=== PATIENT | male | born 1965 | race Two or more races ===

== ENCOUNTER 2023-01-27 13:32 | Emergency (ER) | payer OTHER ==
[~2023-01-27] VITALS: Ht 170.2 cm; Wt 106.8 kg
[2023-01-27] MEDS ORDERED: IBUPROFEN 800 MG TAB PO ONE (15:30)
[2023-01-27 15:47] VITALS: BP 140/79; PULSE 80; RESP 15; O2SAT 96
== END 2023-01-27 15:49 | disposition home or self-care (01) ==
LOC: ER 13:32
DX: S63.92XA Sprain of unspecified part of left wrist and hand, initial encounter (principal); S50.311A Abrasion of right elbow, initial encounter; Z88.0 Allergy status to penicillin; V29.99XA Rider (driver) (passenger) of other motorcycle injured in unspecified traffic accident, initial encounter; Y93.89 Activity, other specified; Y92.410 Unspecified street and highway as the place of occurrence of the external cause; Y99.8 Other external cause status
CPT/HCPCS: 73080; 73130

== ENCOUNTER → 2023-04-19 | Outpatient (CLI) | payer OTHER ==
[2023-04-19 09:35] LABS: Basophils # (auto) 0.1 10 ^3/uL (0-0.2); Basophils % (auto) 1.1 % (0.0-2.0); Eosinophils # (auto) 0.2 10 ^3/uL (0-0.8); Eosinophils % (auto) 4.8 % (0.0-7.0); Hematocrit 46.4 % (41.0-53.0); Hemoglobin 15.5 g/dL (13.5-17.5); Lymphocytes # (auto) 2.1 10 ^3/uL (0.4-5.4); Lymphocytes % (auto) 43.3 % (10.0-50.0); Mean Corpuscular Hemoglobin 32.1 pg (28.0-32.0); Mean Corpuscular Hgb Conc. 33.4 g/dL (32.0-36.0); Mean Corpuscular Volume 96.3 fL (80.0-100.0); Monocytes # (auto) 0.5 10 ^3/uL (0-1.3); Monocytes % (auto) 9.9 % (0.0-12.0); Neutrophils % (auto) 40.9 % (37.0-80.0); Nucleated Red Blood Cells % 0.1 %; Red Blood Cells 4.82 10^6/uL (4.5-5.90); Red Cell Distribution Width 13.9 % (11.8-14.3); White Blood Cell 4.8 10^3/uL (4.4-10.8)
[2023-04-19 10:11] LABS: Alanine Aminotransferase 116 U/L (7-40); Alkaline Phosphatase 50 U/L (46-116); Anion Gap 5 (5-15); BUN/Creatinine Ratio 10.7 (10.0-20.0); Blood Urea Nitrogen 12 mg/dL (9-23); Calcium 9.3 mg/dL (8.5-10.1); Carbon Dioxide 30 mmol/L (20-30); Chloride 108 mmol/L (98-107); Glucose 153 mg/dL (74-106); LDL Cholesterol 118 mg/dL (< 100); Potassium 4.6 mmol/L (3.5-5.1); Sodium 143 mmol/L (136-145); Triglycerides 115 mg/dL (< 150)
[2023-04-19 10:12] LABS: Albumin 4.3 g/dL (3.2-4.8); Aspartate Aminotransferase 75 U/L (13-40); Bilirubin, Total 0.5 mg/dL (0.2-1.0); Cholesterol 185 mg/dL (< 200); HDL Cholesterol 61 mg/dL (40-59)
[2023-04-19 10:13] LABS: Total Protein 7.2 g/dL (5.7-8.2)
[2023-04-19 10:24] LABS: Creatinine, Urine 171.49 mg/dL (30.0-125.0)
[2023-04-19 10:26] LABS: Micro Albumin < 3.0 mg/L (<30.0)
== END | disposition home or self-care (01) ==
LOC: LAB 09:20
PROVIDERS: ATTEND Student in an Organized Health Care Education/Training Program
DX: E11.9 Type 2 diabetes mellitus without complications (principal); H53.8 Other visual disturbances; M54.2 Cervicalgia
CPT/HCPCS: 36415; 80053; 80061; 82043; 82570; 83036; 85025

== ENCOUNTER 2023-11-17 14:54 | Emergency (ER) | payer OTHER ==
[~2023-11-17] VITALS: Ht 170.2 cm; Wt 120.0 kg
[2023-11-17] MEDS: TETANUS-DIPTH-ACEL PERTUSSIS 0.5ML SYR Tdap IM ONE (15:15)
[2023-11-17 15:18] VITALS: TEMP 98.3
[2023-11-17] MEDS: HYDROmorphone HCL 2 MG/ML VL/or syr IM ONE (15:29)
[2023-11-17 15:50] VITALS: PULSE 88; RESP 14; O2SAT 92
[2023-11-17] MEDS: NEOMYCIN-BACITRACIN-POLYM UNITDOSE PKG TOP OINT TOP ONE (16:19)
[2023-11-17] MEDS ORDERED: BACIOIN15 TOP (17:48)
[2023-11-17] MEDS ORDERED: HYDR-4902 PO (17:48)
[2023-11-17] MEDS ORDERED: CEPH250C PO (17:48)
[2023-11-17] MEDS ORDERED: IBUP-1456 PO (17:48)
[2023-11-17 18:11] VITALS: BP 128/78; PULSE 76; RESP 12; O2SAT 94
== END 2023-11-17 18:20 | disposition home or self-care (01) ==
LOC: EDBD 14:54 → ER 14:58
DX: S50.02XA Contusion of left elbow, initial encounter (principal); S50.01XA Contusion of right elbow, initial encounter; S80.02XA Contusion of left knee, initial encounter; S80.01XA Contusion of right knee, initial encounter; S00.81XA Abrasion of other part of head, initial encounter; Z88.0 Allergy status to penicillin; V29.99XA Rider (driver) (passenger) of other motorcycle injured in unspecified traffic accident, initial encounter; Y93.89 Activity, other specified; Y92.89 Other specified places as the place of occurrence of the external cause; Y99.8 Other external cause status
CPT/HCPCS: 73080; 73562; 90471; 90715; 96372; 99285; J1170

== ENCOUNTER 2024-04-20 22:36 | Inpatient (IN) | payer OTHER ==
[~2024-04-20] VITALS: Ht 170.2 cm; Wt 116.4 kg
[~2024-04-20 22:36] MED LIST: BACIOIN15 TOP; CEPH250C PO; HYDR-4902 PO; IBUP-1456 PO
[2024-04-20 22:40] VITALS: PULSE 82; RESP 12; O2SAT 95
[2024-04-20 23:14] LABS: Basophils # (auto) 0.1 10 ^3/uL (0-0.2); Basophils % (auto) 0.7 % (0.0-2.0); Eosinophils # (auto) 0.1 10 ^3/uL (0-0.8); Eosinophils % (auto) 1.1 % (0.0-7.0); Hemoglobin 17.3 g/dL (13.5-17.5); Lymphocytes # (auto) 2.7 10 ^3/uL (0.4-5.4); Lymphocytes % (auto) 30.3 % (10.0-50.0); Mean Corpuscular Hemoglobin 32.9 pg (28.0-32.0); Mean Corpuscular Hgb Conc. 33.8 g/dL (32.0-36.0); Mean Corpuscular Volume 97.2 fL (80.0-100.0); Monocytes # (auto) 0.7 10 ^3/uL (0-1.3); Neutrophils # (auto) 5.3 10 ^3/uL (1.6-8.6); Neutrophils % (auto) 59.9 % (37.0-80.0); Platelet Count (auto) 162 10^3/uL (140-450); Red Blood Cells 5.25 10^6/uL (4.5-5.90); Red Cell Distribution Width 14.1 % (11.8-14.3); White Blood Cell 8.9 10^3/uL (4.4-10.8)
--- NOTE | 2024-04-20 23:19 | ED.PDOC ---
History of Present Illness HPI Comments 59 y/o M, with a Hx of DM, HLD, HTN, and morbid obesity morbid obesity, presents with c/o chest pain and shortness of breath, today. Patient endorses on unprovoked and sudden onset of symptoms, this evening, at around 1845. Patient comments on Hx of having similar symptoms in the past for several months but states on never being medical evaluated for it in the past. Patient reports no additional pertinent or relevant Hx in addition to recent stress, injuries, sick contact, travel, spoiled food, or substance use/exposure. Patient denies having any palpitations, cough, nausea, vomiting, fever, chills, or other associated symptoms or modifiers at this time. Chief Complaint: Shortness of Breath Time Seen by MD: 22:45 Reviewed Notes: Nurses Notes, Medications, Allergies Allergies: Coded Allergies: Penicillins (Verified Allergy, Unknown, 01/27/23) Home Meds Active Scripts Hydrocodone-Acetaminophen (Hydrocodone Bitartrate/AC 5-325 mg) 1 Tab Tab, 1 TAB PO Q6HP PRN, #20 TAB Prov:ADIEL MARQUEZ PAC 11/17/23 Ibuprofen (Ibuprofen) 800 Mg Tab, 1 TAB PO Q8HP PRN, #30 TAB 0 Refills Prov:ADIEL MARQUEZ PAC 11/17/23 Bacitracin Base (Bacitracin) 500 Unit/Gm Oin, 500 UNIT TOP DAILY, #60 GM Prov:ADIEL MARQUEZ PAC 11/17/23 Cephalexin (KEFLEX CAPSULE) 250 Mg Cp, 1 CAP PO QID for 7 Days, #28 CAP Prov:ADIEL MARQUEZ PAC 11/17/23 Information Source: Patient Mode of Arrival: Ambulatory Severity: Moderate Timing: Hours Duration: Since onset Prehospital treatment: None Past Medical History PAST MEDICAL HISTORY: DM, High Lipids, HTN Past Medical History (Other): morbid obesity Surgical History: Denies all surgeries Family History Family History: Unknown Social History Smoker: Non-Smoker Alcohol: Occasionally Drugs: Denies Drug Use Lives In: Home Constitutional: denies: chills, diaphoresis, fatigue, fever, malaise, sweats, weakness, others EENTM: denies: blurred vision, double vision, ear bleeding, ear discharge, ear drainage, ear pain, ear ringing, eye pain, eye redness, hearing loss, mouth pain, mouth swelling, nasal discharge, nose bleeding, nose congestion, nose pain, photophobia, tearing, throat pain, throat swelling, voice changes, others Respiratory: reports: shortness of breath; denies: cough, hemoptysis, orthopnea, SOB at rest, SOB with excertion, stridor, wheezing, others Cardiovascular: reports: chest pain; denies: dizzy spells, diaphoresis, Dyspnea on exertion, edema, irregular heart beat, left arm pain, lightheadedness, palpitations, PND, syncope, others Gastrointestinal: denies: abdomen distended, abdominal pain, blood streaked bowels, constipated, diarrhea, dysphagia, difficulty swallowing, hematemesis, melena, nausea, poor appetite, poor fluid intake, rectal bleeding, rectal pain, vomiting, others Genitourinary: denies: burning, dysuria, flank pain, frequency, hematuria, incontinence, penile discharge, penile sore, pain, testicle pain, testicle swelling, urgency, others Neurological: denies: dizziness, fainting, headache, left sided numbness, left sided weakness, numbness, paresthesia, pre-existing deficit, right sided numbness, right sided weakness, seizure, speech problems, tingling, tremors, weakness, others Musculoskeletal: denies: back pain, gout, joint pain, joint swelling, muscle pain, muscle stiffness, neck pain, others Integumetry: denies: bruises, change in color, change in hair/nails, dryness, laceration, lesions, lumps, rash, wounds, others Allergic/Immunocompromised: denies: Difficulty Healing, Frequent Infections, Hives, Itching, others Hematologic/Lymphatic: denies: anemia, blood clots, easy bleeding, easy bruising, swollen glands, others Endocrine: denies: excessive hunger, excessive sweating, excessive thirst, excessive urination, flushing, intolerance to cold, intolerance to heat, unexplained weight gain, unexplained weight loss, others Psychiatric: denies: anxiety, bipolar disorder, depression, hopeless, panic disorder, schizophrenia, sleepless, suicidal, others All Other Systems: Reviewed and Negative Physical Exam General Appearance: Moderate Distress HEENT: Normal ENT Inspection, Pharynx Normal, TMs Normal Neck: Full Range of Motion, Non-Tender, Normal, Normal Inspection Respiratory: Chest Non-Tender, Lungs Clear, No Accessory Muscle Use, No Respiratory Distress, Normal Breath Sounds Cardiovascular: No Edema, No JVD, No Murmur, No Gallop, Normal Peripheral Pulses, Regular Rate/Rhythm Breast Exam: Deferred Gastrointestinal: No Organomegaly, Non Tender, No Pulsatile Mass, Normal Bowel Sounds, Soft Genitalia: Deferred Pelvic: Deferred Rectal: Deferred Extremities: No calf tenderness, Normal capillary refill, Normal inspection, Normal range of motion, Non-tender, No pedal edema Musculoskeletal : Apperance: Normal Neurologic: Alert Cerebellar Function: NOT DONE Reflexes: NOT DONE Skin: Normal Color Peripheral Pulses: 3+ Radial (R), 3+ Radial (L) Lymphatic: No Adenopathy Was a procedure done? Was a procedure done?: No EKG EKG : Pulse Rate (adult): 91 Burt: Normal Cardiac Rhythm: NSR Block: None Hypertrophy: None ST: Normal Differential Dx Considerations may include: DE, ACS, pneumonia, angina, musculoskeletal pain, costochondritis, pericarditis, gastritis, gastroenteritis, viral syndrome X-Ray, Labs, Meds, VS Vital Signs Date Time Temp Pulse Resp B/P (MAP) Pulse Ox O2 Delivery O2 Flow Rate FiO2 04/20/24 23:19 91 04/20/24 23:07 99.0 99 21 178/112 (134) 97 04/20/24 22:45 91 Lab Test 04/20/24 22:57 Range/Units White Blood Count 8.9 4.4-10.8 10^3/uL Red Blood Count 5.25 4.5-5.90 10^6/uL Hemoglobin 17.3 13.5-17.5 g/dL Hematocrit 51.0 41.0-53.0 % Mean Corpuscular Volume 97.2 80.0-100.0 fL Mean Corpuscular Hemoglobin 32.9 H 28.0-32.0 pg Mean Corpuscular Hemoglobin Concent 33.8 32.0-36.0 g/dL Red Cell Distribution Width 14.1 11.8-14.3 % Platelet Count 162 140-450 10^3/uL Mean Platelet Volume 9.6 6.9-10.8 fL Neutrophils (%) (Auto) 59.9 37.0-80.0 % Lymphocytes (%) (Auto) 30.3 10.0-50.0 % Monocytes (%) (Auto) 8.0 0.0-12.0 % Eosinophils (%) (Auto) 1.1 0.0-7.0 % Basophils (%) (Auto) 0.7 0.0-2.0 % Neutrophils # (Auto) 5.3 1.6-8.6 10 ^3/uL Lymphocytes # (Auto) 2.7 0.4-5.4 10 ^3/uL Monocytes # (Auto) 0.7 0-1.3 10 ^3/uL Eosinophils # (Auto) 0.1 0-0.8 10 ^3/uL Basophils # (Auto) 0.1 0-0.2 10 ^3/uL Nucleated Red Blood Cells 0.0 % Sodium Level 137 136-145 mmol/L Potassium Level 4.3 3.5-5.1 mmol/L Chloride Level 103 98-107 mmol/L Carbon Dioxide Level 25 20-31 mmol/L Anion Gap 9 5-15 Blood Urea Nitrogen 16 9-23 mg/dL Creatinine 1.30 0.700-1.30 mg/dL Glomerular Filtration Rate Calc 64 >90 mL/min BUN/Creatinine Ratio 12.3 10.0-20.0 Serum Glucose 409 *H 74-106 mg/dL Calcium Level 9.8 8.7-10.4 mg/dL Troponin I High Sensitivity 723 *H </=54 ng/L [place] [address] Ph: [phone] DIAGNOSTIC IMAGING Diagnostic Imaging Report : [id number] Signed PATIENT: GENOVEVA TORRES ACCT: [id number] UNIT: [id number] : 1965 LOC: ER ROOM / BED: / AGE / SEX: 59 / M ADM STATUS: REG ER SERVICE [id number] ORDERING PHYSICIAN: CHUY THRASHER MD PROCEDURE(s): CXRP - CHEST PORTABLE REASON: sob ORDER NUMBER(s): [id number], ACCESSION NUMBER(s): [id number] EXAM: XY CHEST PORTABLE CLINICAL HISTORY: sob TECHNIQUE: Single AP view of the chest WID: COMPARISON: None FINDINGS: Lines and tubes: None Chest: The heart size and pulmonary vasculature is within normal limits. No pleural effusion, pneumothorax, or consolidation. Linear perihilar and bibasilar opacities likely atelectasis The osseous structures are grossly intact. IMPRESSION: Linear perihilar and bibasilar opacities likely atelectasis. ATED BY: DANITA CHRISTOPHER MD DICTATED DATE/TIME: 04/20/242325 SIGNED BY: DANITA CHRISTOPHER MD SIGNED DATE/TIME: 04/20/242325 CC: Patient alert. Complaining of chest pain. Has risk factors for coronary artery disease. Vitals stable. Continues to have chest pain. Establish intravenous access. Was given morphine. Was given Zofran. Was given aspirin. EKG reviewed does not show any acute changes. Chest x-ray reviewed does not show any acute process. Reviewed his previous visit. Explained to the patient. Continue cardiac monitoring. Time of 1ST Reevaluation: 23:15 Reevaluation 1ST: Unchanged Patient Education/Counseling: Diagnosis, Treatment Family Education/Counseling: No Family Present Departure 1 Departure Time of Disposition: 23:38 Impression: Primary Impression: Chest pain of unknown etiology Additional Impression: Hypertensive urgency Disposition: ADMITTED INPATIENT Admit to: Med Surg Condition: Guarded Critical Care Note Critical Care Time?: Yes (90 min-critical care time only) Stability Stability form required: No Heart Score Heart Score: Heart Score Response (Comments) Value History Moderate Suspicious 1 EKG Normal 0 Age 45-64 1 Risk Factors >3 or Hx ASHD 2 Troponin Normal limit 0 Total 4 I personally scribed for CHUY THRASHER MD ([email or web address]) on 04/20/24 at 23:19. Electronically submitted by Jovany Grier ([email or web address]). I personally scribed for CHUY THRASHER MD ([email or web address]) on 04/21/24 at 00:06. Electronically submitted by Jovany Grier ([email or web address]). CHUY THRASHER MD Apr 20, 2024 23:19
[2024-04-20 23:27] LABS: Chloride 103 mmol/L (98-107); Potassium 4.3 mmol/L (3.5-5.1); Sodium 137 mmol/L (136-145)
[2024-04-20 23:28] LABS: Anion Gap 9 (5-15); Calcium 9.8 mg/dL (8.7-10.4); Carbon Dioxide 25 mmol/L (20-31)
--- NOTE | 2024-04-20 23:29 | DVH ---
EXAM: XY CHEST PORTABLE CLINICAL HISTORY: sob TECHNIQUE: Single AP view of the chest WID: COMPARISON: None FINDINGS: Lines and tubes: None Chest: The heart size and pulmonary vasculature is within normal limits. No pleural effusion, pneumothorax, or consolidation. Linear perihilar and bibasilar opacities likely atelectasis The osseous structures are grossly intact. IMPRESSION: Linear perihilar and bibasilar opacities likely atelectasis.
[2024-04-20 23:33] LABS: BUN/Creatinine Ratio 12.3 (10.0-20.0); Blood Urea Nitrogen 16 mg/dL (9-23)
[2024-04-20 23:39] LABS: Glucose 409 mg/dL (74-106)
[2024-04-20] MEDS: ONDANSETRON HCL 4 MG/2 ML VIAL IV ONE (23:45)
[2024-04-21] MEDS: InsuLIN REG 1unit/0.01ml Soln (100units/ml) IV ONE
[2024-04-21] MEDS: ASPirin 325 MG TAB PO ONE (00:20)
[2024-04-21] MEDS: MORPHINE SULFATE 4 MG/ML SYR/VIAL IV ONE (00:21)
[2024-04-21] MEDS: SODIUM CHLORIDE 0.9% 1,000 ML IV ONE (00:28)
[2024-04-21] MEDS: ENOXAPARIN SOD 120 MG/0.8 ML SYRINGE SC ONE ×2 (00:38→22:20)
[2024-04-21] MEDS: cloNIDine HCL 0.1 MG TAB PO ONE (00:38)
--- NOTE | 2024-04-21 06:37 | ECG ---
[facility] Test Date: 2024-04-20 Test Time: 22:45:54 Pat Name: GENOVEVA TORRES Department: ED Room: 0291T Gender: M Ceiling Insulation Blower: LIZZY : 1965 Requested By: CHUY THRASHER Order Number: [id number] Reading MD: Hermilo Delgadillo Measurements Intervals Felda Rate: 91 P: 50 NE: 150 QRS: 12 QRSD: 93 T: 26 QT: 367 QTc: 452 Interpretive Statements Sinus rhythm Electronically Signed On 04-25-2024 17:03:30 PST by Hermilo Delgadillo Please click the below link to view image of tracing.
[2024-04-21 07:30] VITALS: PULSE 78; RESP 18; O2SAT 96
[2024-04-21 07:40] LABS: Urine Bacteria None Seen /hpf (None Seen); Urine WBC None Seen /hpf (0 - 3)
[2024-04-21 07:53] LABS: Urine Blood Negative /uL (Negative); Urine Budding Yeast OCCASIONAL /hpf (None Seen); Urine Clarity Clear (Clear); Urine Color Yellow (Yellow); Urine Mucus FEW (None Seen); Urine Protein, UAD Negative (Negative); Urine Specific Gravity 1.036 (1.001-1.035); Urine Urobilinogen Normal (Negative)
[2024-04-21] MEDS ORDERED: LORazepam 0.5 MG TAB PO PRN (12:15)
[2024-04-21] MEDS ORDERED: MORPHINE SULFATE INJ 2 MG/ml SYRG IV PRN (12:15)
[2024-04-21] MEDS ORDERED: DEXTROSE (50%) 50ML SYRG IV PRN (12:15)
[2024-04-21] MEDS ORDERED: NITROGLYCERIN 0.4 MG SL TAB SL PRN (12:15)
[2024-04-21] MEDS ORDERED: ONDANSETRON HCL 4 MG/2 ML VIAL IV PRN (12:15)
[2024-04-21] MEDS ORDERED: MORPHINE SULFATE 4 MG/ML SYR/VIAL IV PRN (12:15)
--- NOTE | 2024-04-21 12:52 | DVHHP2 ---
History of Present Illness Reason for Visit: chest pain History of Present Illness 59-year-old morbidly obese with a history of hypertension diabetes CAD CHF comes to the ED with complaints of chest pain patient was shown to be hyperglycemic have elevated troponins have hypertensive urgency and was recommended for continued evaluation and management and treatment for suspected NSTEMI patient will be admitted for continued treatment recurrent chest pain issues Cardiovascular: CAD, CHF, HTN Endocrine: Diabetes Review of Systems Constitutional: Yes: Weakness; No: Fever, Chills, Sweats, Malaise, Other Eyes: No: Pain, Vision change, Conjunctivae inflammation, Eyelid inflammation, Other, Redness ENT: No: Ear pain, Ear discharge, Nose pain, Nose discharge, Nose congestion, Mouth pain, Mouth swelling, Throat pain, Throat swelling, Other Respiratory: Shortness of breath, SOB with excertion; No: Cough, Dry, Wheezing, Hemoptysis, Pleuritic Pain, Sputum, Wheezing, Other Cardiovascular: Chest Pain, Palpitations; No: Orthopnea, Paroxysmal Noc. Dyspnea, Edema, Lt Headedness, Other Gastrointestinal: No: Nausea, Vomiting, Abdominal Pain, Diarrhea, Constipation, Melena, Hematochezia, Other Genitourinary: No Dysuria, No Frequency, No Incontinence, No Hematuria, No Retention, No Other Musculoskeletal: No: other, neck pain, shoulder pain, arm pain, back pain, hand pain, leg pain, foot pain Skin: No: Rash, Lesions, Jaundice, Bruising, Other Neurological: No: Weakness, Numbness, Incoordination, Change in speech, Confusion, Seizures, Other Allergies: Coded Allergies: Penicillins (Verified Allergy, Unknown, 01/27/23) Medications Current Medications Medications Dose Ordered Sig/Anny Route Start Time Stop Time Status Last Admin Dose Admin Diagnostic Test (Pha) 1 strip IQ4HR 04/21/24 16:00 UNV Insulin Human Regular IQ4HR SC 04/21/24 16:00 UNV Dextrose 50 ml UD PRN IV 04/21/24 12:15 UNV Aspirin 81 mg DAILY PO 04/22/24 10:00 UNV Clopidogrel Bisulfate 75 mg DAILY PO 04/22/24 10:00 UNV Atorvastatin Calcium 80 mg HS PO 04/21/24 22:00 UNV Metoprolol Tartrate 12.5 mg Q12HR PO 04/21/24 22:00 UNV Morphine Sulfate 2 mg Q30MP PRN IV 04/21/24 12:15 UNV Acetaminophen 650 mg Q6HP PRN PO 04/21/24 12:15 UNV Zolpidem Tartrate 5 mg QHSP PRN PO 04/21/24 12:15 UNV Lorazepam 0.5 mg Q6HP PRN PO 04/21/24 12:15 UNV Docusate Sodium 100 mg DAILY PO 04/22/24 10:00 UNV Ondansetron HCl 4 mg Q4HP PRN IV 04/21/24 12:15 UNV Lisinopril 10 mg DAILY PO 04/22/24 10:00 UNV Nitroglycerin 0.4 mg Q5MINP PRN SL 04/21/24 12:15 UNV Morphine Sulfate 2 mg Q30M PRN IV 04/21/24 12:15 UNV Exam Vital Signs Vital Signs Date Time Temp Pulse Resp B/P (MAP) Pulse Ox O2 Delivery O2 Flow Rate FiO2 04/21/24 10:38 112 04/21/24 10:00 16 132/95 (107) 96 04/21/24 07:30 Nasal Cannula* 2 28 04/20/24 23:07 99.0 General Appearance: Alert, moderate distress HEENT: Atraumatic, PERRLA Respiratory: Clear to auscultation Cardiovascular: Regular rate, Normal S1, Normal S2 Abdominal: Normal bowel sounds, Soft Extremities: No clubbing, No cyanosis Skin: No rashes, No breakdown Neuro: Normal gait, Normal speech Psych/Mental Status: Mood NL Labs/Xrays Labs Test 04/21/24 06:30 04/21/24 03:50 04/21/24 00:48 04/20/24 22:57 Range/Units Urine Color Yellow Yellow Urine Clarity Clear Clear Urine pH 5.0 5.0-9.0 Urine Specific [place] 1.036 H 1.001-1.035 Urine Protein Negative Negative Urine Ketones Negative Negative Urine Blood Negative Negative /uL Urine Nitrite Negative Negative Urine Bilirubin Negative Negative Urine Urobilinogen Normal Negative mg/dL Urine Leukocyte Esterase Negative Negative /uL Urine RBC None seen 0 - 3 /hpf Urine WBC None seen 0 - 3 /hpf Urine Squamous Epithelial Cells Few <5 /hpf Urine Bacteria None seen None Seen /hpf Urine Mucus Few None Seen Urine Yeast (Budding) Occasional None Seen /hpf Urine Glucose 4+ H Normal mg/dL Troponin I High Sensitivity 606 *H </=54 ng/L POC Glucose 287 H 70-106 mg/dl White Blood Count 8.9 4.4-10.8 10^3/uL Red Blood Count 5.25 4.5-5.90 10^6/uL Hemoglobin 17.3 13.5-17.5 g/dL Hematocrit 51.0 41.0-53.0 % Mean Corpuscular Volume 97.2 80.0-100.0 fL Mean Corpuscular Hemoglobin 32.9 H 28.0-32.0 pg Mean Corpuscular Hemoglobin Concent 33.8 32.0-36.0 g/dL Red Cell Distribution Width 14.1 11.8-14.3 % Platelet Count 162 140-450 10^3/uL Mean Platelet Volume 9.6 6.9-10.8 fL Neutrophils (%) (Auto) 59.9 37.0-80.0 % Lymphocytes (%) (Auto) 30.3 10.0-50.0 % Monocytes (%) (Auto) 8.0 0.0-12.0 % Eosinophils (%) (Auto) 1.1 0.0-7.0 % Basophils (%) (Auto) 0.7 0.0-2.0 % Neutrophils # (Auto) 5.3 1.6-8.6 10 ^3/uL Lymphocytes # (Auto) 2.7 0.4-5.4 10 ^3/uL Monocytes # (Auto) 0.7 0-1.3 10 ^3/uL Eosinophils # (Auto) 0.1 0-0.8 10 ^3/uL Basophils # (Auto) 0.1 0-0.2 10 ^3/uL Nucleated Red Blood Cells 0.0 % Sodium Level 137 136-145 mmol/L Potassium Level 4.3 3.5-5.1 mmol/L Chloride Level 103 98-107 mmol/L Carbon Dioxide Level 25 20-31 mmol/L Anion Gap 9 5-15 Blood Urea Nitrogen 16 9-23 mg/dL Creatinine 1.30 0.700-1.30 mg/dL Glomerular Filtration Rate Calc 64 >90 mL/min BUN/Creatinine Ratio 12.3 10.0-20.0 Serum Glucose 409 *H 74-106 mg/dL Calcium Level 9.8 8.7-10.4 mg/dL Assessment/Plan Assessment/Plan Admit to Tele Nstemi chest pain palpations Elevated Tropsx3 history HTN, CAD, DM cardio consult for acute management possible need for cath morbidly obese DM uncontrolled hyperglycemia aggressive insulin sliding scale iv hydration gentle HTN urgency clonidine given in the ed hydralazine prn tid bp management Plan discussed with: Patient My Orders Orders - AHMET DE ANDA MD Procedure Category Date Status Time * Cardiology Consult CONS 04/21/24 Transmitted 12:14 Glucose Blood PHA 04/21/24 Logged (Accu-Chek Comfort 16:00 Insulin R (Human) PHA 04/21/24 Logged (Insulin R) 16:00 Dextrose 50% Syringe PHA 04/21/24 Logged 12:15 Admit ADMIT 04/21/24 Transmitted 12:14 Code Status CODE 04/21/24 Transmitted 12:14 Leather Skinner MESSI 04/21/24 In Process 12:14 Cardiac DIET 04/21/24 Transmitted Diet-2gna,Lofat,Lochol Lunch Aspirin Tablet PHA 04/22/24 Logged 10:00 Clopidogrel Bisulfate PHA 04/22/24 Logged (Plavix) 10:00 Atorvastatin (Lipitor) PHA 04/21/24 Logged 22:00 Metoprolol Tartrate PHA 04/21/24 Logged Tablet (Lopressor Ta 22:00 Morphine Sulfate PHA 04/21/24 Logged Injection 12:15 Acetaminophen Tablet PHA 04/21/24 Logged (Tylenol Tablet) 12:15 Zolpidem Tartrate PHA 04/21/24 Logged (Ambien) 12:15 Lorazepam Tablet PHA 04/21/24 Logged (Ativan Tablet) 12:15 Docusate Sodium PHA 04/22/24 Logged Capsule (Colace 10:00 Complete Blood Count LAB 04/22/24 Verified 04:00 Basic Metabolic Panel LAB 04/22/24 Verified 04:00 Ondansetron Hcl PHA 04/21/24 Logged (Zofran) 12:15 Electrocardigram EKG 04/21/24 Logged 12:14 Alum & Mag PHA 04/21/24 Logged Hydrox-Simethicone 12:15 Troponin-I Hs LAB 04/21/24 Logged 12:14 Lisinopril Tablet PHA 04/22/24 Logged (Zestril Tablet) 10:00 Cardiac MESSI 04/21/24 In Process Rehabilitation - Outpa Nitroglycerin [facility] 04/21/24 Logged Sublingual (Ntrostat 12:15 Morphine Sulfate [facility] 04/21/24 Logged Injection 12:15 Stat Ekg For Chest [facility] 04/21/24 In Process Pain 12:14 Notify Md Of Changes [facility] 04/21/24 In Process From Base 12:14 Livestock Agent For [facility] 04/21/24 In Process 24 Hours 12:14 Emergency Dysrhythmia [facility] 04/21/24 In Process Protocol 12:14 Rhythm Strips Once [facility] 04/21/24 In Process Every Shift 12:14 Oxygen By Nasal 04/21/24 Transmitted Cannula 12:14 Problem List: (1) NSTEMI (non-ST elevated myocardial infarction) (2) Hypertensive urgency (3) Chest pain of unknown etiology Date of Service: Apr 21, 2024 Billing Provider: AHMET ED ANDA MD Common Visit Codes: [id number] INP/OBS CARE (HIGH) AHMET DE ANDA MD Apr 21, 2024 12:52
[2024-04-21] MEDS: MAALOX PLUS or MAALOX 30 ML PO ONE (13:47)
[2024-04-21 14:16] VITALS: BP 106/67; PULSE 84; RESP 16; TEMP 97.7; O2SAT 95
--- NOTE | 2024-04-21 14:28 | DVHINCON2 ---
Date Seen: Apr 21, 2024 Referring Physician MD Thad Reason for Consultation Chest pain History of Present Illness This is a 59-year-old male who presented to the emergency room with a chief complaint of chest pain for two days. Localizes his chest pain to the substernal area, pressure-like, constant, and associated with WHITE with short distances, PND, and polyuria. He underwent a 12 lead electrocardiogram revea ling a sinus rhythm without acute discernible ischemia. Serial troponin levels peaked at 750 ng/L. Significant medical history includes oyq-bqenszo-gklbzweop diabetes mellitus managed by diet and exercise, chronic left knee pain with cane use, and morbid obesity. Of note, previous provider reported history of CAD and CHF which the patient denies. Past Medical History Past medical history reviewed. No other significant than mentioned above. Past Surgical History Left knee replacement Right shoulder Family History Family history reviewed. Social History Denies the use of illicit drugs or tobacco use. Admits to social alcohol use. Allergies: Coded Allergies: Penicillins (Verified Allergy, Unknown, 01/27/23) Home Meds Active Scripts Hydrocodone-Acetaminophen (Hydrocodone Bitartrate/AC 5-325 mg) 1 Tab Tab, 1 TAB PO Q6HP PRN, #20 TAB Prov:ADIEL MARQUEZ PAC 11/17/23 Ibuprofen (Ibuprofen) 800 Mg Tab, 1 TAB PO Q8HP PRN, #30 TAB 0 Refills Prov:ADIEL MARQUEZ PAC 11/17/23 Bacitracin Base (Bacitracin) 500 Unit/Gm Oin, 500 UNIT TOP DAILY, #60 GM Prov:ADIEL MARQUEZ PAC 11/17/23 Cephalexin (KEFLEX CAPSULE) 250 Mg Cp, 1 CAP PO QID for 7 Days, #28 CAP Prov:ADIEL MARQUEZ [facility] 11/17/23 Home Meds Home medications reviewed. Current Medications Current Medications Medications (Trade) Dose Ordered Sig/Anny Route PRN Reason Start Time Stop Time Status Last Admin Diagnostic Test (Pha) (Accu-Chek Comfort Curve T) 1 strip IQ4HR 04/21/24 16:00 Insulin Human Regular (InsuLIN R) IQ4HR SC 04/21/24 16:00 Dextrose 50 ml UD PRN IV Blood Sugar LESS THAN 60 04/21/24 12:15 Aspirin 81 mg DAILY PO 04/22/24 10:00 Clopidogrel Bisulfate (Plavix) 75 mg DAILY PO 04/22/24 10:00 Atorvastatin Calcium (Lipitor) 80 mg HS PO 04/21/24 22:00 Metoprolol Tartrate (Lopressor Tablet) 12.5 mg Q12HR PO 04/21/24 22:00 Morphine Sulfate 2 mg Q30MP PRN IV FOR CHEST PAIN 04/21/24 12:15 04/21/24 13:41 DC Acetaminophen (Tylenol Tablet) 650 mg Q6HP PRN PO MILD PAIN (1-3 PAIN SCALE) 04/21/24 12:15 Zolpidem Tartrate (Ambien) 5 mg QHSP PRN PO FOR INSOMNIA 04/21/24 22:00 Lorazepam (Ativan Tablet) 0.5 mg Q6HP PRN PO ANXIETY 04/21/24 12:15 Docusate Sodium (Colace Capsule) 100 mg DAILY PO 04/22/24 10:00 Ondansetron HCl (Zofran) 4 mg Q4HP PRN IV NAUSEA / VOMITING 04/21/24 12:15 Lisinopril (Zestril Tablet) 10 mg DAILY PO 04/22/24 10:00 Nitroglycerin (Ntrostat Sublingual) 0.4 mg Q5MINP PRN SL FOR CHEST PAIN 04/21/24 12:15 Morphine Sulfate 2 mg Q30M PRN IV FOR CHEST PAIN 04/21/24 12:15 Review of Systems Constitutional: No symptom reported Ears, Nose, & Throat: No symptom reported Eyes: No symptom reported Neurological: No symptoms reported Pulmonary/Respiratory: SOB, WHITE, PND Cardiovascular: Chest pain Gastrointestinal: No symptom reported Genitourinary: Polyuria Musculoskeletal: No symptom reported Skin: No symptom reported Psychiatric: No symptom reported Endocrine: No symptom reported Hemotologic/Lymphatic: No symptom reported Vital Signs Vital Signs Date Time Temp Pulse Resp B/P (MAP) Pulse Ox O2 Delivery O2 Flow Rate FiO2 04/21/24 12:00 70 16 130/85 (100) 98 04/21/24 07:30 Nasal Cannula* 2 28 04/20/24 23:07 99.0 Physical Exam General Appearance: Cooperative. Well developed. Morbidly obese. In no acute distress Head Exam: Normal inspection Neck Exam: Normal inspection. Non-tender. Normal alignment Pulmonary/Respiratory: Chest non-tender. Diminished bilateral breath sounds Cardiovascular/Chest: Regular rate and rhythm. S1, S2. Sinus rhythm. No murmurs. No JVD. Peripheral Pulses: 2+ Radial (R). 2+ Radial (L). 2+ Pedal (R). 2+ Pedal (L) Abdominal Exam: Normal bowel sounds. Soft. Nontender. No hepatospenomegaly. No masses Ankle Exam: Negative ankle edema Lower extremities: Negative lower extremity edema Neuro/Mental Status: A&O x4. Coherent Thoughts/Psych: Normal thought pattern. Appropriate mood and affect. Good judgement and insight Appearance: In no acute distress Skin Exam: Normal inspection. Normal color. Warm. Dry Labs/Diagnostic Data Labs Test 04/21/24 06:30 04/21/24 03:50 04/21/24 00:48 04/20/24 22:57 Range/Units Urine Color Yellow Yellow Urine Clarity Clear Clear Urine pH 5.0 5.0-9.0 Urine Specific [place] 1.036 H 1.001-1.035 Urine Protein Negative Negative Urine Ketones Negative Negative Urine Blood Negative Negative /uL Urine Nitrite Negative Negative Urine Bilirubin Negative Negative Urine Urobilinogen Normal Negative mg/dL Urine Leukocyte Esterase Negative Negative /uL Urine RBC None seen 0 - 3 /hpf Urine WBC None seen 0 - 3 /hpf Urine Squamous Epithelial Cells Few <5 /hpf Urine Bacteria None seen None Seen /hpf Urine Mucus Few None Seen Urine Yeast (Budding) Occasional None Seen /hpf Urine Glucose 4+ H Normal mg/dL Troponin I High Sensitivity 606 *H </=54 ng/L POC Glucose 287 H 70-106 mg/dl White Blood Count 8.9 4.4-10.8 10^3/uL Red Blood Count 5.25 4.5-5.90 10^6/uL Hemoglobin 17.3 13.5-17.5 g/dL Hematocrit 51.0 41.0-53.0 % Mean Corpuscular Volume 97.2 80.0-100.0 fL Mean Corpuscular Hemoglobin 32.9 H 28.0-32.0 pg Mean Corpuscular Hemoglobin Concent 33.8 32.0-36.0 g/dL Red Cell Distribution Width 14.1 11.8-14.3 % Platelet Count 162 140-450 10^3/uL Mean Platelet Volume 9.6 6.9-10.8 fL Neutrophils (%) (Auto) 59.9 37.0-80.0 % Lymphocytes (%) (Auto) 30.3 10.0-50.0 % Monocytes (%) (Auto) 8.0 0.0-12.0 % Eosinophils (%) (Auto) 1.1 0.0-7.0 % Basophils (%) (Auto) 0.7 0.0-2.0 % Neutrophils # (Auto) 5.3 1.6-8.6 10 ^3/uL Lymphocytes # (Auto) 2.7 0.4-5.4 10 ^3/uL Monocytes # (Auto) 0.7 0-1.3 10 ^3/uL Eosinophils # (Auto) 0.1 0-0.8 10 ^3/uL Basophils # (Auto) 0.1 0-0.2 10 ^3/uL Nucleated Red Blood Cells 0.0 % Sodium Level 137 136-145 mmol/L Potassium Level 4.3 3.5-5.1 mmol/L Chloride Level 103 98-107 mmol/L Carbon Dioxide Level 25 20-31 mmol/L Anion Gap 9 5-15 Blood Urea Nitrogen 16 9-23 mg/dL Creatinine 1.30 0.700-1.30 mg/dL Glomerular Filtration Rate Calc 64 >90 mL/min BUN/Creatinine Ratio 12.3 10.0-20.0 Serum Glucose 409 *H 74-106 mg/dL Calcium Level 9.8 8.7-10.4 mg/dL Assessment NSTEMI rule out coronary artery disease Rule out structural heart disease Ljq-lztxvgk-pwzapsldf diabetes mellitus with hyperglycemia Hypertension urgency, newly diagnosed Morbid obesity Plan/Recommendation (Dr. Patel) The patient with elevated troponin levels, risk factors, and associated angina has been scheduled for a cardiac catheterization and coronary angiogram at first available. All risks and benefits of the procedure were discussed with the patient who agrees to proceed with intervention. All questions answered. In the meantime, obtain a transthoracic echocardiogram to rule out structural heart disease. Initiate aggressive blood pressure management as well as tight glycemic control. Continue therapeutic Lovenox, single-antiplatelet therapy, and lipid lowering agent prior to procedure. Monitor ECG changes and notify. Continue chest pain protocol. Thank you for allowing us to participate in this patient's care. Please call if you have any questions or concerns. This medical document was created using an electronic medical record system with voice recognition software and computerized dictation system. Although this document has been carefully reviewed, there might still be some phonetic and typographical errors. Occasional wrong-word or ``sound-alike substitutions may have occurred due to the inherent limitations of voice recognition software. These areas are purely typographical due to imperfections of the software programs and do not reflect any compromise in the patient's medical care. Please read the chart carefully and recognize, using context, where these substitutions have occurred. Plan discussed with: Patient, Other Date of Service: Apr 21, 2024 Billing Provider: MOON PATEL MD Cardiology Common Codes: [id number] INP/OBS CARE (High) JULIETH YARBROUGH OIL RECOVERY OPERATOR Apr 21, 2024 14:28
[2024-04-21] MEDS ORDERED: hydrALAZINE HCL 20 MG/ML VL IV PRN (14:30)
[2024-04-21 15:31] LABS: Basophils # (auto) 0.1 10 ^3/uL (0-0.2); Eosinophils # (auto) 0.1 10 ^3/uL (0-0.8); Eosinophils % (auto) 1.4 % (0.0-7.0); Hematocrit 49.9 % (41.0-53.0); Hemoglobin 16.8 g/dL (13.5-17.5); Lymphocytes # (auto) 2.4 10 ^3/uL (0.4-5.4); Lymphocytes % (auto) 37.3 % (10.0-50.0); Mean Corpuscular Hgb Conc. 33.6 g/dL (32.0-36.0); Mean Corpuscular Volume 98.3 fL (80.0-100.0); Monocytes # (auto) 0.5 10 ^3/uL (0-1.3); Monocytes % (auto) 8.1 % (0.0-12.0); Neutrophils # (auto) 3.4 10 ^3/uL (1.6-8.6); Neutrophils % (auto) 52.2 % (37.0-80.0); Nucleated Red Blood Cells % 0.3 %; Platelet Count (auto) 152 10^3/uL (140-450); Red Blood Cells 5.08 10^6/uL (4.5-5.90); Red Cell Distribution Width 14.4 % (11.8-14.3); White Blood Cell 6.6 10^3/uL (4.4-10.8)
--- NOTE | 2024-04-21 15:45 | DVHSR ---
APPROVED REPORT EXAM: Two-dimensional and M-mode echocardiogram with Doppler and color Doppler. Blood Pressure: 130/85 mmHg INDICATION SOB R/O CHF RISK FACTORS Height: 67, Weight: 239 DIMENSIONS LVDd4.2 (3.8-5.7cm)LA (2D)3.9 (1.9-4.0cm)Aortic Root3.4 (2.0-3.7cm) LVDs2.9 (2.5-4.0cm)LA (MM) (1.9-4.0cm)Aortic Cusp Exc1.9 (1.5-2.0cm) EF (%) 60.0 (55-70%)Rt. Atrium (1.9-4.0cm)Asc. Aorta3.0 cm IVSd1.2 (0.7-1.1cm)RV (D) (1.8-2.4cm) PWd1.2 (0.7-1.1cm) Mitral Valve MitralMitral Stenosis E wave0.45m/sMV Mean GR.mmHg A wave0.73m/sMV Peak GR.mmHg E/A ratio0.62D MVAcm2 DECEL [id number] 1/2 Arfm92ze IVRTmsDop MVA3.68cm2 Aortic Valve Aortic ValveAortic Stenosis V10.90m/Simeon Mean GR.2mmHg V21.12m/Simeon Peak GR.5mmHg LVOT Diameter2.2 (1.8-2.4cm)Doppler AVA3.05cm2 Pulmonic Valve V20.68m/s Tricuspid Valve TR Velocity2.54m/s [id number] Other Information Technically limited study due to body habitus. Conclusion Normal left ventricular size and dimension. Normal left ventricular systolic function estimated ejec tion fraction is 65%. There is a grade 1 diastolic dysfunction. Normal right ventricular size and dimension. Normal right ventricular systolic function. There is s light elevation in right ventricular systolic [id number] mm of mercury. Normal biatrial size and dimension. Normal aortic valve structure function. Normal mitral valve structure and function. Normal tricuspid valve structure and function. The pulmonary valve is grossly normal. No pericardial effusion.
[2024-04-21 15:48] LABS: Alanine Aminotransferase 120 U/L (7-40); Alkaline Phosphatase 73 U/L (46-116); Anion Gap 6 (5-15); Aspartate Aminotransferase 64 U/L (13-40); BUN/Creatinine Ratio 9.8 (10.0-20.0); Blood Urea Nitrogen 14 mg/dL (9-23); Calcium 9.6 mg/dL (8.7-10.4); Carbon Dioxide 32 mmol/L (20-31); Chloride 100 mmol/L (98-107); Glucose 342 mg/dL (74-106); LDL Cholesterol 119 mg/dL (< 100); Magnesium 1.9 mg/dL (1.6-2.6); Potassium 4.1 mmol/L (3.5-5.1); Sodium 138 mmol/L (136-145); Triglycerides 285 mg/dL (< 150)
[2024-04-21 15:49] LABS: Bilirubin, Total 0.8 mg/dL (0.2-1.0); Cholesterol 210 mg/dL (< 200); HDL Cholesterol 62 mg/dL (40-59); Total Protein 7.2 g/dL (5.7-8.2)
[2024-04-21] MEDS: ACCU-CHEK COMFORT CURVE STRIP VI SCH (16:08)
[2024-04-21] MEDS: InsuLIN REG 1unit/0.01ml Soln (100units/ml) SC SCH (16:52)
[2024-04-21 20:00] VITALS: PULSE 77
[2024-04-21 21:00] VITALS: BP 114/77; PULSE 80; RESP 17; TEMP 98.6; O2SAT 98
[2024-04-21] MEDS ORDERED: METOPROLOL TARTRATE 25 MG TAB PO SCH (22:00)
[2024-04-21] MEDS ORDERED: ENOXAPARIN SOD 120 MG/0.8 ML SYRINGE SC ONE (22:00)
[2024-04-21] MEDS ORDERED: ZOLPIDEM TARTRATE 5 MG TAB PO PRN (22:00)
[2024-04-21] MEDS: METOPROLOL TARTRATE 25 MG TAB PO SCH (22:19)
[2024-04-21] MEDS: ATORVASTATIN 20 MG TAB PO SCH (22:21)
[2024-04-22] VITALS (13 sets, daily range): BP systolic 110–137; BP diastolic 68–97; PULSE 56–77; RESP 12–19; TEMP 98.2–98.6; O2SAT 91–98
[2024-04-22 06:08] LABS: Basophils # (auto) 0.1 10 ^3/uL (0-0.2); Basophils % (auto) 0.7 % (0.0-2.0); Eosinophils # (auto) 0.2 10 ^3/uL (0-0.8); Hematocrit 48.5 % (41.0-53.0); Hemoglobin 16.6 g/dL (13.5-17.5); Lymphocytes # (auto) 3.4 10 ^3/uL (0.4-5.4); Lymphocytes % (auto) 41.6 % (10.0-50.0); Mean Corpuscular Hemoglobin 33.3 pg (28.0-32.0); Mean Corpuscular Hgb Conc. 34.2 g/dL (32.0-36.0); Mean Corpuscular Volume 97.2 fL (80.0-100.0); Monocytes # (auto) 0.7 10 ^3/uL (0-1.3); Monocytes % (auto) 8.5 % (0.0-12.0); Neutrophils # (auto) 3.7 10 ^3/uL (1.6-8.6); Neutrophils % (auto) 46.2 % (37.0-80.0); Nucleated Red Blood Cells % 0.3 %; Platelet Count (auto) 153 10^3/uL (140-450); Red Blood Cells 4.99 10^6/uL (4.5-5.90); White Blood Cell 8.1 10^3/uL (4.4-10.8)
[2024-04-22 06:15] LABS: INR 1.12 (0.9-1.15); Partial Thromboplastin Time 31.9 SEC (24.5-34.5); Prothrombin Time 11.8 sec (9.3-11.8)
[2024-04-22 06:16] LABS: Calcium 9.6 mg/dL (8.7-10.4); Chloride 106 mmol/L (98-107); Potassium 3.7 mmol/L (3.5-5.1); Sodium 142 mmol/L (136-145)
[2024-04-22 06:17] LABS: Anion Gap 7 (5-15); Carbon Dioxide 29 mmol/L (20-31)
[2024-04-22 06:22] LABS: BUN/Creatinine Ratio 13.4 (10.0-20.0); Blood Urea Nitrogen 16 mg/dL (9-23); Glucose 96 mg/dL (74-106)
[2024-04-22] MEDS: HEPARIN IN NS 1000Units/500mL 1,500 ML ONE (08:30)
[2024-04-22] MEDS: IODIXANOL 320MG/ML 100ML BTL IV ONE (08:30)
[2024-04-22] MEDS: fentaNYL CITRATE 100 MCG/2 ML VL ONE (09:22)
[2024-04-22] MEDS: HEPARIN SODIUM (PORCINE) 5000 UNITS/ML 1ML VIAL ONE (09:22)
[2024-04-22] MEDS: SODIUM CHL 0.9% 0 ML ONE (09:22)
[2024-04-22] MEDS: VERAPAMIL 2.5MG/ML INJ 2ML VIAL IV ONE (09:22)
[2024-04-22] MEDS: LIDOCAINE 2%HCL (LOCAL ANESTH.) INJ 20ML MDV ONE (09:22)
[2024-04-22] MEDS: ANGIOMAX 250 MG VIAL IV ONE (09:22)
[2024-04-22] MEDS: MIDAZOLAM HCL 2MG/2ML 2ml VIAL (1mg/ml) ONE (09:22)
--- NOTE | 2024-04-22 09:38 | DVHOP2 ---
Operative Report -Cardiology Report Details Date: 04/22/24 Preop Diagnosis: Non ST-elevation myocardial infarction. Postop Diagnosis: No significant coronary artery disease but sluggish flow was noted across all three coronary vessels. Surgeon: Tru Velarde MD Anesthesiologist: Conscious sedation using25 mcg of fentanyl as well as a mg of midazolam. This was given under direct supervision of myself the primary flow coordinator in the presence of the attending nurses. No obvious complication was noted in the total time of observation of 35 minutes. Anesthesia: Local Consent: The patient was informed of the risks and benefits of the procedure. These include but are not limited to complications of anesthesia, postoperative infection, incomplete relief of symptoms, recurrence of symptoms, damage to blood vessels, nerves and tendons, deep venous thrombosis, pulmonary embolism and possible need for repeat surgery in the future. Indications for Surgery: This is a 59-year-old male who presented to the emergency room with a chief complaint of chest pain for two days. Localizes his chest pain to the substernal area, pressure-like, constant, and associated with WHITE with short distances, PND, and polyuria. He underwent a 12 lead electrocardiogram revealing a sinus rhythm without acute discernible ischemia. Serial troponin levels peaked at 750 ng/L. Significant medical history includes fvm-nyrxouu-zawhgiwmk diabetes mellitus managed by diet and exercise, chronic left knee pain with cane use, and morbid obesity. Of note, previous provider reported history of CAD and CHF which the patient denies. Name of Procedure Performed 1. Left heart catheterization with left ventricular end-diastolic pressure measurement. 2. Selective right and left coronary angiography utilizing right transradial clarissa bryson. 3. Conscious sedation using25 mcg of fentanyl as well as a mg of midazolam. Procedure Details Procedure Details: Vascular access and the procedure note: After informed consent was obtained, risks, benefits, complications, and alternatives were discussed in details with the patient who agrees to have the procedure done. At the beginning of the procedure the right wrist and the right coronary artery were prepped and draped in the regular sterile fashion. Patient [id number] mcg of fentanyl as well as a mg of midazolam conscious sedation. Thereafter, total of 2 cc of 1% xylocaine was given locally to the right wrist area before a six Beninese sheath was placed using modified Seldinger technique. A cocktail of 2.5 mg of verapamil as well as 100 mcg of nitroglycerin were given intra-arterial to prevent vasospasm. [place] five Beninese catheter as well as a Cass Art J-tip wire were used to cross the aortic arch. The once cross the aortic arch 3000 of heparin was given to prevent catheter-induced thrombus, radial artery occlusion and reduced risk of stroke. Findings were as follows: 1. Left heart catheterization with left ventricular end-diastolic pressure measurement: With the help of a tiger five Beninese catheter we were able to cross the aortic valve and measured left ventricular end-diastolic pressure which was elevated at 15 mm of mercury. There was no significant gradient across the aortic valve on the pullback. 2. Selective right and left coronary angiography utilizing right transradial approach: 1. The right coronary artery comes off the right coronary cusp it is a large dominant system bifurcates distally into large posterior descending as well as a large posterolateral branch. The right coronary artery has sluggish flow but no significant atherosclerotic plaque or stenosis was noted. 2. Left main comes off the left coronary cusp is widely patent without significant disease. Bifurcates distally into large left anterior descending artery as well as medium-sized left circumflex vessel. 3. The left anterior descending artery is large it gives rise to two diagonal branches, it has a transapical course, it has mild irregularity with sluggish flow but no significant or discrete stenosis was noted. 4. The left circumflex artery is a medium-sized vessel bifurcates into two obtuse marginal branches it has mild irregularities with sluggish flow but no significant stenosis was noted. Impression and plan: 1. Myocardial infarction with nonobstructive coronary artery disease. 2. Sluggish coronary flow indicating underlying endothelial dysfunction. 3. Quite elevated left ventricular end-diastolic pressure indicating underlying diastolic heart failure. 4. Patient would need aggressive medical therapy and risk factor modification, he would need echocardiogram to assess left ventricular systolic function and proceed with goal-directed therapy as indicated. Condition Good Disposition TRU VELARDE MD Apr 22, 2024 09:38
[2024-04-22] MEDS ORDERED: CLOPIDOGREL BISULFATE 75 MG TAB PO SCH (10:00)
[2024-04-22] MEDS: DOCUSATE SOD 100 MG CAP PO SCH (10:00)
[2024-04-22] MEDS: LISINOPRIL 5 MG TAB PO SCH (10:00)
[2024-04-22] MEDS ORDERED: ASPirin 81 mg TAB PO SCH (10:00)
--- NOTE | 2024-04-22 11:00 | DVHPN2 ---
Consult Progress Note Date Seen: Apr 22, 2024 Subjective Review of Systems: CVS:Normal, RESPIRATORY:Abnormal, NEURO:Normal Other Systems: C/o mild SOB Objective vital signs Vital Sign Date Time Temp Pulse Resp B/P (MAP) Pulse Ox O2 Delivery O2 Flow Rate FiO2 04/22/24 10:21 60 14 125/83 (97) 94 04/22/24 05:00 98.4 98.4 04/21/24 20:00 Nasal Cannula* 2 28 Total Intake and Output 04/21/24 04/21/24 04/22/24 15:00 23:00 07:00 Intake Total 500 ml Balance 500 ml medications Current Medications Medications Dose Ordered Sig/Anny Route Start Time Stop Time Status Last Admin Dose Admin Diagnostic Test (Pha) 1 strip IQ4HR 04/21/24 16:00 04/22/24 07:56 1 STRIP Insulin Human Regular IQ4HR SC 04/21/24 16:00 04/22/24 07:56 2 UNITS Dextrose 50 ml UD PRN IV 04/21/24 12:15 Aspirin 81 mg DAILY PO 04/22/24 10:00 Clopidogrel Bisulfate 75 mg DAILY PO 04/22/24 10:00 Atorvastatin Calcium 80 mg HS PO 04/21/24 22:00 04/21/24 22:21 80 MG Acetaminophen 650 mg Q6HP PRN PO 04/21/24 12:15 Zolpidem Tartrate 5 mg QHSP PRN PO 04/21/24 22:00 Lorazepam 0.5 mg Q6HP PRN PO 04/21/24 12:15 Docusate Sodium 100 mg DAILY PO 04/22/24 10:00 Ondansetron HCl 4 mg Q4HP PRN IV 04/21/24 12:15 Lisinopril 10 mg DAILY PO 04/22/24 10:00 Nitroglycerin 0.4 mg Q5MINP PRN SL 04/21/24 12:15 Morphine Sulfate 2 mg Q30M PRN IV 04/21/24 12:15 Metoprolol Tartrate 25 mg Q12HR PO 04/21/24 22:00 04/21/24 22:19 25 MG Hydralazine HCl 10 mg Q6HP PRN IV 04/21/24 14:30 Examination: LUNGS:Normal, CVS:Normal, NEURO:Normal laboratory and microbiology Laboratory Tests 04/22/24 05:18 Test 04/22/24 05:18 Range/Units Serum Glucose 96 # 74-106 mg/dL Problem List/Assessment/Plan Problem List/Assessment/Plan NSTEMI status post cardiac catheterization with non-obstructive CAD Coronary slow flow phenomenon indicating endothelial dysfunction Ryg-cofmhqx-ciizuevbj diabetes mellitus with hyperglycemia, uncontrolled HgbA1C >10% Hypertension urgency, newly diagnosed Dyslipidemia Morbid obesity Plan/Recommendation (Dr. Patel) The patient underwent a cardiac catheterization and coronary angiogram revealing non-obstructive coronary artery disease. A transthoracic echocardiogram revealed an EF of 65%. We recommend aggressive blood pressure control as he presented with a hypertensive urgency. Initiate CCB given CSF. Continue tight glycemic control given elevated HgbA1C with associated hyperglycemia. Continue lipid-lowering agent. Counseled on diabetic diet, weight loss, and exercise as tolerated. There is no further cardiac work-up indicated at this time. Kindly call if in need to re-consult. Thank you for allowing us to participate in this patient's care. Please call if you have any questions or concerns. This medical document was created using an electronic medical record system with voice recognition software and computerized dictation system. Although this document has been carefully reviewed, there might still be some phonetic and typographical errors. Occasional wrong-word or ``sound-alike substitutions may have occurred due to the inherent limitations of voice recognition software. These areas are purely typographical due to imperfections of the software programs and do not reflect any compromise in the patient's medical care. Please read the chart carefully and recognize, using context, where these substitutions have occurred. Plan discussed with: Patient, Other Date of Service: Apr 22, 2024 Billing Provider: MOON PATEL MD Cardiology Common Codes: 30998-TTB/OBS SAME DATE (Mod) JULIETH YARBROUGH BANQUET ATTENDANT Apr 22, 2024 11:00
[2024-04-22] MEDS: ACETAMINOPHEN 325 MG TAB PO PRN (12:13)
--- NOTE | 2024-04-23 00:44 | DVHPN2 ---
Subjective - 04/22 - patient stable. clean cath. optmizing BP. started procardia. on lisniopril. per cards focus on risk factor modification. will need only one antiplatelet as no stent or PTCA required. will monitor BP over night. likely dc tomorrow 04/23 Reviewed: H&P Changes from previous H/P or p: No Changes General: Per HPI Musculoskeletal: No other, No neck pain, No shoulder pain, No arm pain, No back pain, No hand pain, No leg pain, No foot pain Skin: No Rash, No Lesions, No Jaundice, No Bruising, No Other Objective Vitals Vital Signs Date Time Temp Pulse Resp B/P (MAP) Pulse Ox O2 Delivery O2 Flow Rate FiO2 04/22/24 21:00 98.2 76 18 135/85 (102) 94 98.2 04/22/24 07:30 Nasal Cannula* 3 32 Intake/Output Intake and Output 04/23/24 07:00 Intake Total 350 ml Balance 350 ml Intake Oral 350 ml # Voids 1 # Bowel Movements 1 Exam GEN: Healthy appearing, well-developed, NAD. HEENT: NC/AT; MMM. PERRLA CV: RRR, no m/r/g. LUNGS: CTAB, no w/r/c. ABD: Soft, NT/ND, NBS, no masses or organomegaly. : N/A EXT: No clubbing, cyanosis, or edema. Skin warm, well perfused. No skin rashes or abnormal lesions. NEURO: Ambulating with no limitations. No focal deficits. Medications Current Medications Medications Dose Ordered Sig/Anny Route Start Time Stop Time Status Last Admin Dose Admin Diagnostic Test (Pha) 1 strip IQ4HR 04/21/24 16:00 04/23/24 00:17 1 STRIP Insulin Human Regular IQ4HR SC 04/21/24 16:00 04/23/24 00:20 4 UNITS Dextrose 50 ml UD PRN IV 04/21/24 12:15 Atorvastatin Calcium 80 mg HS PO 04/21/24 22:00 04/21/24 22:21 80 MG Acetaminophen 650 mg Q6HP PRN PO 04/21/24 12:15 04/22/24 12:13 650 MG Zolpidem Tartrate 5 mg QHSP PRN PO 04/21/24 22:00 Lorazepam 0.5 mg Q6HP PRN PO 04/21/24 12:15 Docusate Sodium 100 mg DAILY PO 04/22/24 10:00 Ondansetron HCl 4 mg Q4HP PRN IV 04/21/24 12:15 Lisinopril 10 mg DAILY PO 04/22/24 10:00 Nitroglycerin 0.4 mg Q5MINP PRN SL 04/21/24 12:15 Morphine Sulfate 2 mg Q30M PRN IV 04/21/24 12:15 Hydralazine HCl 10 mg Q6HP PRN IV 04/21/24 14:30 Nifedipine 30 mg DAILY PO 04/23/24 10:00 Laboratory Results Laboratory Tests 04/22/24 05:18 Chemistry Test 04/22/24 05:18 Calcium Level 9.6 mg/dL (8.7-10.4) Coagulation Test 04/22/24 05:18 Prothrombin Time 11.8 sec (9.3-11.8) Prothrombin Time INR 1.12 (0.9-1.15) Activated Partial Thromboplast Time 31.9 SEC (24.5-34.5) Urinalysis Test 04/21/24 06:30 Urine Color Yellow (Yellow) Urine Clarity Clear (Clear) Urine pH 5.0 (5.0-9.0) Urine Specific [place] 1.036 (1.001-1.035) Urine Protein Negative (Negative) Urine Ketones Negative (Negative) Urine Blood Negative /uL (Negative) Urine Nitrite Negative (Negative) Urine Bilirubin Negative (Negative) Urine Urobilinogen Normal mg/dL (Negative) Urine Leukocyte Esterase Negative /uL (Negative) Urine RBC None seen /hpf (0 - 3) Urine WBC None seen /hpf (0 - 3) Urine Squamous Epithelial Cells Few /hpf (<5) Urine Bacteria None seen /hpf (None Seen) Urine Mucus Few (None Seen) Urine Yeast (Budding) Occasional /hpf (None Urine Glucose 4+ mg/dL (Normal) H Labs and/or images reviewed: Labs reviewed by me, Image(s) reviewed by me Assessment/Plan Assessment/Plan - 04/22 - patient stable. clean cath. optmizing BP. started procardia. on lisniopril. per cards focus on risk factor modification. will need only one antiplatelet as no stent or PTCA required. will monitor BP over night. likely dc tomorrow 11/20 NSTEMI status post cardiac catheterization with non-obstructive CAD Coronary slow flow phenomenon indicating endothelial dysfunction Otz-phdrerr-eigkndxbz diabetes mellitus with hyperglycemia, uncontrolled HgbA1C >10% Hypertension urgency, newly diagnosed Dyslipidemia Morbid obesity - CAD - aspirin statin and outpt cards - HTN - lisnioppril, procardia - DM - accuchecks ac/hs SSI. outpatient will need metformin, likely jardiance as well med/tele cardiac diet dvt lovenox gi - diet Plan discussed with: Patient Date of Service: Apr 22, 2024 Billing Provider: LUCILA MEYER MD Common Visit Codes: [id number] INP/OBS CARE(HIGH) LUCILA MEYER MD Apr 23, 2024 00:44
[2024-04-23 01:00] VITALS: BP 125/81; PULSE 64; RESP 18; TEMP 98.1; O2SAT 96
[2024-04-23 05:00] VITALS: BP 140/78; PULSE 70; RESP 18; TEMP 98.2; O2SAT 97
[2024-04-23 07:00] LABS: Alanine Aminotransferase 119 U/L (7-40); Albumin 3.9 g/dL (3.2-4.8); Alkaline Phosphatase 66 U/L (46-116); Anion Gap 7 (5-15); Aspartate Aminotransferase 82 U/L (13-40); BUN/Creatinine Ratio 13.9 (10.0-20.0); Blood Urea Nitrogen 14 mg/dL (9-23); Calcium 9.3 mg/dL (8.7-10.4); Carbon Dioxide 27 mmol/L (20-31); Chloride 106 mmol/L (98-107); Glucose 169 mg/dL (74-106); Sodium 140 mmol/L (136-145)
[2024-04-23 07:01] LABS: Bilirubin, Total 0.7 mg/dL (0.2-1.0); Total Protein 6.6 g/dL (5.7-8.2)
[2024-04-23 08:00] VITALS: PULSE 65; PULSE 72; RESP 18; O2SAT 97
[2024-04-23 09:00] VITALS: BP 157/86; PULSE 72; RESP 18; TEMP 98; O2SAT 97
[2024-04-23] MEDS: NIFEdipine ER 30 MG TAB PO SCH (09:15)
[2024-04-23] MEDS ORDERED: PRED20TA2 PO (09:21)
[2024-04-23] MEDS ORDERED: ROSU40TA81 PO (09:21)
[2024-04-23] MEDS ORDERED: BACL10TA PO (09:21)
[2024-04-23] MEDS ORDERED: AZIT500T66 PO (09:21)
[2024-04-23] MEDS ORDERED: ASPI-325 PO (09:21)
[2024-04-23] MEDS ORDERED: LISI-275 PO (09:21)
[2024-04-23] MEDS ORDERED: METF-929 PO (09:21)
[2024-04-23] MEDS ORDERED: NIFE1TAB36 PO (09:21)
[2024-04-23] MEDS ORDERED: EMPA1TAB PO (09:21)
--- NOTE | 2024-04-23 09:24 | DVHDS2 ---
Discharge Summary Date of Admission Apr 21, 2024 at 12:14 Date of Discharge: Apr 23, 2024 Labs/Diagnostic Data: Laboratory Results Test 04/23/24 08:08 04/23/24 05:57 04/22/24 05:18 04/21/24 17:00 POC Glucose 186 mg/dl (70-106) Sodium Level 140 mmol/L (136-145) Potassium Level 4.0 mmol/L (3.5-5.1) Chloride Level 106 mmol/L (98-107) Carbon Dioxide Level 27 mmol/L (20-31) Anion Gap 7 (5-15) Blood Urea Nitrogen 14 mg/dL (9-23) Creatinine 1.01 mg/dL (0.700-1.30) Glomerular Filtration Rate Calc 87 mL/min (>90) BUN/Creatinine Ratio 13.9 (10.0-20.0) Serum Glucose 169 mg/dL (74-106) Calcium Level 9.3 mg/dL (8.7-10.4) Total Bilirubin 0.7 mg/dL (0.2-1.0) Aspartate Amino Transferase (AST) 82 U/L (13-40) Alanine Aminotransferase (ALT) 119 U/L (7-40) Alkaline Phosphatase 66 U/L (46-116) Total Protein 6.6 g/dL (5.7-8.2) Albumin 3.9 g/dL (3.2-4.8) White Blood Count 8.1 10^3/uL (4.4-10.8) Red Blood Count 4.99 10^6/uL (4.5-5.90) Hemoglobin 16.6 g/dL (13.5-17.5) Hematocrit 48.5 % (41.0-53.0) Mean Corpuscular Volume 97.2 fL (80.0-100.0) Mean Corpuscular Hemoglobin 33.3 pg (28.0-32.0) Mean Corpuscular Hemoglobin Concent 34.2 g/dL (32.0-36.0) Red Cell Distribution Width 14.0 % (11.8-14.3) Platelet Count 153 10^3/uL (140-450) Mean Platelet Volume 9.9 fL (6.9-10.8) Neutrophils (%) (Auto) 46.2 % (37.0-80.0) Lymphocytes (%) (Auto) 41.6 % (10.0-50.0) Monocytes (%) (Auto) 8.5 % (0.0-12.0) Eosinophils (%) (Auto) 3.0 % (0.0-7.0) Basophils (%) (Auto) 0.7 % (0.0-2.0) Neutrophils # (Auto) 3.7 10 ^3/uL (1.6-8.6) Lymphocytes # (Auto) 3.4 10 ^3/uL (0.4-5.4) Monocytes # (Auto) 0.7 10 ^3/uL (0-1.3) Eosinophils # (Auto) 0.2 10 ^3/uL (0-0.8) Basophils # (Auto) 0.1 10 ^3/uL (0-0.2) Nucleated Red Blood Cells 0.3 % Prothrombin Time 11.8 sec (9.3-11.8) Prothrombin Time INR 1.12 (0.9-1.15) Activated Partial Thromboplast Time 31.9 SEC (24.5-34.5) Troponin I High Sensitivity 229 ng/L (</=54) Test 04/21/24 15:05 04/21/24 06:30 Hemoglobin A1c 10.4 % A1C (<5.7) Magnesium Level 1.9 mg/dL (1.6-2.6) B-Type Natriuretic Peptide 132.89 pg/mL (0-100) Triglycerides Level 285 mg/dL (< 150) Cholesterol Level 210 mg/dL (< 200) LDL Cholesterol 119 mg/dL (< 100) HDL Cholesterol 62 mg/dL (40-59) Thyroid Stimulating Hormone (TSH) 1.90 uIU/mL (0.55-4.78) Urine Color Yellow (Yellow) Urine Clarity Clear (Clear) Urine pH 5.0 (5.0-9.0) Urine Specific [place] 1.036 (1.001-1.035) Urine Protein Negative (Negative) Urine Ketones Negative (Negative) Urine Blood Negative /uL (Negative) Urine Nitrite Negative (Negative) Urine Bilirubin Negative (Negative) Urine Urobilinogen Normal mg/dL (Negative) Urine Leukocyte Esterase Negative /uL (Negative) Urine RBC None seen /hpf (0 - 3) Urine WBC None seen /hpf (0 - 3) Urine Squamous Epithelial Cells Few /hpf (<5) Urine Bacteria None seen /hpf (None Seen) Urine Mucus Few (None Seen) Urine Yeast (Budding) Occasional /hpf (None Urine Glucose 4+ mg/dL (Normal) Other Laboratory Tests 04/23/24 05:57 04/22/24 05:18 Brief Hx & Hospital Course: 59yo M with PMHx hypertension, multiple joint pains (), obesity, diabetes who presented to the emergency room w CC chest pain x two days. Localizes his chest pain to the substernal area, pressure-like, constant, and associated with WHITE with short distances, PND, and polyuria. He underwent a 12 lead electrocardiogram revealing a sinus rhythm without acute discernible ischemia. Serial troponin levels peaked at 750 ng/L. Eelvated bu tstable LFTs on history of NAFLD, defer further management to outpatient, no extensive work-up needed inpatient) Admitted for NSTEMI. cardiology consulted. LHC shows NO-CAD, no stentable blockages. patients chest pain is pleuritic, he is already on daily omeprazole. chest pain is mildy tender on plapation at left chestwall. initially thought to have oxygen but sat well off O2 and ambulating with good O2 near discharge. no tachycardia. no concern PE. AL ruled out by cardiology, VS stable. stable to discharge with plan below. diagnosis: NSTEMI status post cardiac catheterization with non-obstructive CAD; angina;; Coronary slow flow phenomenon indicating endothelial dysfunction; viral pleuritis possible; musculoskeletal chest pain possible; history GERD with possible esophageal spasms which cannot be ruled out; [id number] diabetes mellitus with hyperglycemia, uncontrolled HgbA1C >10%; Hypertension urgency, newly diagnosed ; Dyslipidemia; Morbid obesity; history fatty liver NAFLD. discharge plan: - continue omeprazole daily, as per PCP plan for GERD. this could be esophageal spasms. can take nitrostat SL, if this helps, PCP and ag service manager will follow for possibly ongoing angina versus esophageal spasm. - will trial azithromycin and steroids for possible viral pleuritis - trial baclofen qpm for possible msk related pain. ok to use OTC tylenol and ibuprofen (limit ibuprofen to max 7 days) - f/u with [facility] (BP check, in clinic POC BG, symptoms check) - f/u with [facility] - f/u with [facility] - CAD: continue aspirin 81 daily. hx myalgia with lipitor, hence will trial crestor 20. patient informed to stop use if myalgias return (if this happens, PCP to evaluate indication for pravastatin which has minimal side effects). PCP to manage further - DM: start metformin and jardiance. strict low carb diet. PCP to manage further - HTN: continue lisinopril. start procardia. PCP to manage further - advised to trial water aerobics classes to improve physical deconditioning - work letter till today 04/23/24. patient wants to try to return to work tomorrow - continue other home medications not mentioned above. return to ED if pain returns with worsening intensity. visit and plan required 35min. Condition at Discharge: Fair Final Diagnosis/Problems List NSTEMI status post cardiac catheterization with non-obstructive CAD; angina;; Coronary slow flow phenomenon indicating endothelial dysfunction; viral pleuritis possible; musculoskeletal chest pain possible; history GERD with possible esophageal spasms which cannot be ruled out; [id number] diabetes mellitus with hyperglycemia, uncontrolled HgbA1C >10%; Hypertension urgency, newly diagnosed ; Dyslipidemia; Morbid obesity; history fatty liver NAFLD. Discharge Disposition: Home Discharge Instruct/Medications Diet: Consistent carbohydrate Activity: No Restrictions, As Tolerated Follow Up/Referral: [facility], [facility], [facility] Medications: as below Discharge Statement: "Patient was advised to return to the ER or call 911 if any headaches, dizziness, shortness of breath, chest pain, abdominal pain, bleeding, fevers, or worsening of medical condition. Patient was counseled about treatment plan, medications, possible side effects, patientverbalized understanding. All questions were answered to the best of my ability. This discharge took greater then 30 minutes in planning, reviewing documentation, counseling the patient, and discussing with other team members." ASSESSMENT ASSESSMENT Assessment NSTEMI status post cardiac catheterization with non-obstructive CAD; angina;; Coronary slow flow phenomenon indicating endothelial dysfunction; viral pleuritis possible; musculoskeletal chest pain possible; history GERD with possible esophageal spasms which cannot be ruled out; [id number]-qhrhrhnlr diabetes mellitus with hyperglycemia, uncontrolled HgbA1C >10%; Hypertension urgency, newly diagnosed ; Dyslipidemia; Morbid obesity; history fatty liver NAFLD. Date of Service: Apr 23, 2024 Billing Provider: LUCILA MEYER MD Common Visit Codes: 75378-LUP/OBS DISCH DAY >30min LUCILA MEYER MD Apr 23, 2024 09:24
[2024-04-23 11:31] VITALS: BP 157/86; PULSE 72; RESP 18; TEMP 98; O2SAT 97
[2024-04-23 13:00] VITALS: BP 148/92; PULSE 65; RESP 17; TEMP 97.8; O2SAT 94
[2024-04-25] MEDS ORDERED: AZIT500T66 PO (13:35)
[2024-04-25] MEDS ORDERED: LISI-275 PO (13:35)
[2024-04-25] MEDS ORDERED: PRED20TA2 PO (13:35)
[2024-04-25] MEDS ORDERED: NIFE1TAB36 PO (13:35)
[2024-04-25] MEDS ORDERED: METF-929 PO (13:35)
[2024-04-25] MEDS ORDERED: ROSU40TA81 PO (13:35)
[2024-04-25] MEDS ORDERED: ASPI1TAB19 PO (13:35)
[2024-04-25] MEDS ORDERED: EMPA1TAB PO (13:35)
[2024-04-25] MEDS ORDERED: BACL10TA PO (13:35)
== END 2024-04-23 13:45 | disposition home or self-care (01) | DRG 287 ==
LOC: ER 22:36 → TELE 04-21 12:14 → TELE-WESTW 04-21 12:41
PROVIDERS: ADMIT Hospitalist; ATTEND Student in an Organized Health Care Education/Training Program
PROC: 4A023N7 Measurement of Cardiac Sampling and Pressure, Left Heart, Percutaneous Approach (ICD-10-PCS; principal; 2024-04-22)
PROC: B211YZZ Fluoroscopy of Multiple Coronary Arteries using Other Contrast (ICD-10-PCS; 2024-04-22)
DX: I25.10 Atherosclerotic heart disease of native coronary artery without angina pectoris (principal); I50.32 Chronic diastolic (congestive) heart failure; Z68.41 Body mass index [BMI] 40.0-44.9, adult; I16.0 Hypertensive urgency; E66.01 Morbid (severe) obesity due to excess calories; E11.65 Type 2 diabetes mellitus with hyperglycemia; I11.0 Hypertensive heart disease with heart failure; K76.0 Fatty (change of) liver, not elsewhere classified; G89.29 Other chronic pain; K21.9 Gastro-esophageal reflux disease without esophagitis; E78.5 Hyperlipidemia, unspecified; Z96.652 Presence of left artificial knee joint; Z79.84 Long term (current) use of oral hypoglycemic drugs; Z88.0 Allergy status to penicillin
CPT/HCPCS: 36415; 71045; 80048; 80053; 80061; 81001; 82962; 83036; 83735; 83880; 84443; 84484; 85025; 85610; 85730; 86850; 86900; 86901; 93005; 93306; 93458; 99152; 99291; G0378; J1815; J2250; J2405; Q9967